=== PATIENT | female | born 1955 | race Caucasian/White ===

== ENCOUNTER 2016-09-21 08:11 | Day surgery (SDC) | payer OTHER ==
[2016-09-20 11:58] LABS: BASOPHILS 0.3 %; BASOPHILS ABSOLUTE 0.02 10/3/uL (0.0-0.16); EOSINOPHILS 0.4 %; EOSINOPHILS ABSOLUTE 0.03 10/3/uL (0.0-0.53); HEMATOCRIT 43.8 % (36.0-48.0); HEMOGLOBIN 14.8 g/dL (12.0-16.0); IMMATURE GRANULOCYTES 0.1 %; IMMATURE GRANULOCYTES ABSOLUTE 0.01 10/3/uL (0.0-0.11); LYMPHOCYTES 28.4 %; LYMPHOCYTES ABSOLUTE 2.19 10/3/uL (0.67-4.30); MEAN CORPUS HGB CONC 33.8 g/dL (32.0-36.0); MEAN CORPUSCULAR HEMOGLOB 32.4 pg (26.0-34.0); MEAN CORPUSCULAR VOLUME 95.8 fL (80-100); MEAN PLATELET VOLUME 11.1 fL (9.2-13.0); MONOCYTES 8.4 %; MONOCYTES ABSOLUTE 0.65 10/3/uL (0.21-1.20); NEUTROPHILS 62.4 %; NEUTROPHILS ABSOLUTE 4.82 10/3/uL (2.02-8.40); PLATELET COUNT 149 10/3/uL (150-400); RBC DISTRIBUTION WIDTH 13.2 % (12.0-16.0); RED CELL COUNT 4.57 10/6/uL (4.0-5.6); WHITE BLOOD CELLS 7.7 10/3/uL (4.5-10.5)
[2016-09-20 12:00] LABS: MANUAL DIFF NO %
[2016-09-20 12:12] LABS: A/G RATIO 1.2 (0.7-1.9); ALBUMIN 3.7 G/DL (3.5-5.0); ALKALINE PHOSPHATASE 62 U/L (45-117); BUN (BLOOD UREA NITROGEN) 21 MG/DL (6-23); CALCIUM, SERUM 9.2 MG/DL (8.5-10.4); CHLORIDE, SERUM 107 MMOL/L (96-112); CO2 (CARBON DIOXIDE) 33 MMOL/L (24-34); CREATININE 0.95 MG/DL (0.55-1.02); GFR AFRICAN AMERICAN 76 ML/MIN (>=60); GFR NON AFRICAN AMERICAN 66 ML/MIN (>=60); GLOBULIN 3.1 G/DL (2.5-4.1); GLUCOSE, SERUM 83 MG/DL (60-99); POTASSIUM, SERUM 4.6 MMOL/L (3.5-5.3); SGOT(AST) 8 U/L (5-40); SGPT(ALT) 14 U/L (5-65); SODIUM, SERUM 146 MMOL/L (135-148); TOTAL BILIRUBIN 0.2 MG/DL (0-1.2); TOTAL PROTEIN 6.8 G/DL (6.0-8.5)
--- NOTE | ~2016-09-21 | OP ---
Record Of Operation [facility] [address] [place]. [address] NAME: JUANIS FISHER : 57 STATUS : [facility]#: [id number] AGE: 60 ADM/REG DATE : 09/21/16 MR#: [id number] REPORT SERV DATE: 09/22/16 DICTATED BY: EVENS DORADO JR. DATE: 09/21/16 REPORT STATUS : Draft TRANSCRIBED BY: MODL DATE: 09/21/16 DATE OF PROCEDURE: 09/21/2016 REASON FOR EVALUATION: This 60-year-old patient, resides in a facility for mentally impaired patients, and presents to the [facility] due to mass in her left breast. Her history is quite unknown. She is schizophrenic with bipolar disorder and history is limited. She has no family members available at anytime. She apparently makes her own decisions as reported by the caregiver who brought her to the [facility], but clearly the patient is incompetent. Nonetheless, we are moving ahead with standard and appropriate measures for dealing with her now diagnosed breast cancer. The breast cancer is a low-grade lesion that should have a low risk of recurrence and indeed, adjuvant therapy will not impact her survival. It is hoped that radiation therapy can be avoided if indeed clear margins were obtained in this histologically favorable tubular tumor. Postoperative hormone blocking therapy would be in order. Doing a mastectomy would certainly be also an appropriate measure, but the loss of body image is bothersome to the patient. The tumor is indeed under the nipple at the 12 o'clock edge and there will be some distortion expected. PREOPERATIVE DIAGNOSIS: Carcinoma of left breast. POSTOPERATIVE DIAGNOSIS: Carcinoma of left breast. SURGEON: Evens Dorado M.D. SURGERY PERFORMED: Left breast segmentectomy. PROCEDURE IN DETAIL: Under general anesthesia, the patient was prepped and draped in supine position in usual sterile fashion. A curvilinear incision was made at the 12 o'clock position of the left areola. Dissection was carried into the fatty tissue and then a three- dimensional excision in the subcutaneous plane and underneath the tumor was performed, keeping a generous rim of normal breast tissue. This was dissected off the central ductal system at the 6 o'clock position. The specimen was removed and oriented for pathology. I estimate that in the fresh state, that an 8 mm margin is achieved in each direction. Indeed, at the sectioning, the fatty tissue does retract to about a 4 mm margin in each direction. The wound was irrigated. Hemostasis was obtained. The wound was closed. The undersurface of the nipple-areolar complex was reconstructed to allow normal projection. The wound then was closed in the usual fashion with 2 layers of Monocryl. The patient tolerated the procedure well without any complications. ESTIMATED BLOOD LOSS: Less than 10 mL. SPONGE COUNT: Correct. Record Of Operation [address] [address] NAME: JUANIS FISHER : 57 STATUS : [facility] PAT#: [id number] AGE: 60 ADM/REG DATE : 09/21/16 MR#: [id number] REPORT SERV DATE: 09/22/16 DICTATED BY: EVENS DORADO JR. DATE: 09/21/16 REPORT STATUS : Draft TRANSCRIBED BY: ANANDA DATE: 09/21/16 /ANANDA Evens Dorado Jr., M.D. / [id number] CC: Julio Cesar Wray Jr., MD
[~2016-09-21 08:11] MED LIST: ATIVAN2 MG PO; CENTRUM PO; DEPAKOT500 PO; DITRO5 PO; DSS PO; FERROUS SULF325 M1 PO; MULTIPLE VIT PO; NORCO1 TA1 PO; RISP3 PO; TRICOR48 PO; ZOCOR10 PO
== END 2016-09-21 13:14 | disposition home or self-care (01) ==
LOC: SDC 08:11
PROVIDERS: Surgery Surgical Oncology
PROC: 0BBJ0ZZ Excision of Left Lower Lung Lobe, Open Approach (ICD-10-PCS; principal; 2016-09-21 09:45)
DX: C50.912 Malignant neoplasm of unspecified site of left female breast (principal); F25.0 Schizoaffective disorder, bipolar type; E78.5 Hyperlipidemia, unspecified; E78.00 Pure hypercholesterolemia, unspecified; M13.842 Other specified arthritis, left hand; M13.841 Other specified arthritis, right hand; D64.9 Anemia, unspecified; F41.9 Anxiety disorder, unspecified; Z98.51 Tubal ligation status; Z90.49 Acquired absence of other specified parts of digestive tract; Z98.890 Other specified postprocedural states; F17.200 Nicotine dependence, unspecified, uncomplicated
CPT/HCPCS: 71020; 80053; 85025; 88307; 93005; J0690; J1885; J2250; J2405; J3010